=== PATIENT | male | born 1985 | race Caucasian/White ===

== ENCOUNTER 2019-02-15 19:40 | Emergency (ER) | payer SELFPAY ==
[~2019-02-15] VITALS: Ht 170.2 cm; Wt 122.9 kg
[2019-02-15 19:57] VITALS: BP 137/108
--- NOTE | 2019-02-15 20:05 | NUR ---
PT AMBULATED BACK TO THE LOBBY, ABDIASS
--- NOTE | 2019-02-15 22:15 | NUR ---
RE-EVALUATED PT VITALS SIGNS. PT B/P IS ELEVATED AND HR IS ELEVATED 125. PT STATES THAT IS HIS BASELINE AND HIS B IS HIGH DUE TO NOT BEING ABLE TO TAKE HIS MEDS FOR 2 DAYS. PT STATES HE ALSO SWEATS A LOT AND IT IT IS DUE TO HIS WEIGHT GAIN.
--- NOTE | 2019-02-15 22:17 | NUR ---
PT WAS SENT BACK TO LOBBY, VITALS NOTED AND STABLE.
--- NOTE | 2019-02-15 23:35 | NUR ---
PT AMBULATED TO ED BED 09.
--- NOTE | 2019-02-15 23:44 | NUR ---
FIRST CONTACT WITH PATIENT PATIENT HERE FOR MEDICATION REFILL, PT STATES HE LIVED OUT OF STATE IN [place] AND WAITING FOR INSURANCE TO TRANSFER OVER. CANT SEE PCP TILL NEXT WEEK PER IEHP, NEEDS REFILL CARVEDIL, XARELTO, BUMETANIDE. PATIENT GCS 15, AAOX4, NO OTHER COMPLAINTS. NO ACUTE DISTRESS NOTED. WILL CONTINUE TO MONITOR
--- NOTE | 2019-02-16 00:11 | NUR ---
DR NICE AT BEDSIDE
--- NOTE | 2019-02-16 00:21 | NUR ---
Patient discharged with v/s stable. Written and verbal after care instructions given and explained by Dr Boyle. Patient alert, oriented and verbalized understanding of instructions. Ambulatory with steady gait. All questions addressed prior to discharge. ID band removed by Dr Boyle. Patient advised to follow up with PMD. Rx of XARELTO, COREG, AND BUMENTANIDE given. Patient educated on indication of medication including possible reaction and side effects. Opportunity to ask questions provided and answered by Dr Boyle.
[2019-02-16 00:22] VITALS: BP 141/94
== END 2019-02-16 00:21 | disposition home or self-care (01) ==
LOC: MED 19:40
DX: I11.0 Hypertensive heart disease with heart failure (principal); I50.9 Heart failure, unspecified; I82.409 Acute embolism and thrombosis of unspecified deep veins of unspecified lower extremity; Z76.0 Encounter for issue of repeat prescription
CPT/HCPCS: 99283

== ENCOUNTER 2019-03-23 12:07 | Emergency (ER) | payer SELFPAY ==
[~2019-03-23] VITALS: Ht 167.6 cm; Wt 103.0 kg
[2019-03-23 12:14] VITALS: BP 157/117
--- NOTE | 2019-03-23 12:20 | NUR ---
PT CAME IN FOR MEDICATION REFIL. PT A&OX4, STATES HE HAS SOB EXACERBATED WITH EXERTION. DENIES CP/PALPITATIONS. BLE RED AND 2+ PITTING EDEMA. LUNG SOUNDS CLEAR, O2 SAT 96% RA, BREATHING UNLABORED
[2019-03-23] MEDS ORDERED: RIVA20TA PO (12:25)
[2019-03-23] MEDS ORDERED: CARV6.25 PO (12:25)
[2019-03-23] MEDS ORDERED: BUME1TAB92 PO (12:26)
--- NOTE | 2019-03-23 12:28 | NUR ---
PT AMB TO ER BED 7
[2019-03-23] MEDS ORDERED: RIVAROXABAN 10 MG TAB PO STA (12:56)
[2019-03-23 12:57] LABS: BASOPHILS # (AUTO) 0.1 K/uL (0.00-0.22); BASOPHILS % (AUTO) 1.1 % (0.0-2.0); EOSINOPHILS # (AUTO) 0.1 K/uL (0-0.4); EOSINOPHILS % (AUTO) 0.9 % (0.0-4.0); HEMOGLOBIN 12.2 g/dL (12.0-18.0); LYMPHOCYTES # (AUTO) 2.3 K/uL (2.0-11.5); LYMPHOCYTES % (AUTO) 23.6 % (20.5-51.1); MEAN CORPUSCULAR HEMOGLOBIN 24 pg (27-31); MEAN CORPUSCULAR HGB CONC 31 g/dL (33-37); MEAN CORPUSCULAR VOLUME 77.2 fL (80-94); MONOCYTES # (AUTO) 0.8 K/uL (0.8-1.0); MONOCYTES % (AUTO) 7.9 % (1.7-9.3); NEUTROPHILS # (AUTO) 6.5 K/uL (1.8-7.7); NEUTROPHILS % (AUTO) 66.5 % (42.2-75.2); PLATELET COUNT (AUTO) 423 K/uL (140-450); RED BLOOD CELL COUNT(AUTO) 5.18 MIL/uL (4.20-6.10); RED CELL DISTRIBUTION WIDTH 20.1 % (11.6-13.7); WHITE BLOOD COUNT (AUTO) 9.7 K/uL (4.8-10.8)
[2019-03-23 13:09] LABS: ANION GAP 11.3 (8-16); CARBON DIOXIDE 26.7 mmol/L (21-32); CREATININE 1.1 mg/dL (0.7-1.3)
[2019-03-23 13:15] LABS: ALBUMIN 3.2 g/dL (3.4-5.0); TOTAL BILIRUBIN 4.3 mg/dL (0.0-1.0)
--- NOTE | 2019-03-23 13:21 | NUR ---
called pharmacy to bring jillian
--- NOTE | 2019-03-23 13:28 | NUR ---
pt is refusing all care at this time, states he came to the ER only to refil his prescription medications. Dr. Massey aware and will go to see the pt.
--- NOTE | 2019-03-23 13:34 | NUR ---
PT WOULD LIKE TO LEAVE AMA, DR. HERNDON WILL WRITE PAPERWORK.
[2019-03-23 13:41] VITALS: BP 154/111
--- NOTE | 2019-03-23 13:42 | NUR ---
Patient does not wish to proceed with medical care recommended by DR. HERNDON. Patient given information related to possible complications, up to and including , which could occur as a result of leaving hospital at this time. Patient verbalizes understanding of risks involved leaving against medical advice. Patient has signed AMA form. PT STATES HE ALREADY KNOWS WHAT IS WRONG WITH HIM AND HE DID NOT COME IN FOR TREATMENT, ONLY TO GET A PRESCRIPTION REFIL. RX OF CARVEDILOL, BUMETANIDE, XARELTO given TO PT.
== END 2019-03-23 13:42 | disposition left against medical advice (07) ==
LOC: MED 12:07
DX: R06.02 Shortness of breath (principal); M79.89 Other specified soft tissue disorders; E66.9 Obesity, unspecified; I11.0 Hypertensive heart disease with heart failure; I50.9 Heart failure, unspecified; Z76.0 Encounter for issue of repeat prescription; Z68.36 Body mass index [BMI] 36.0-36.9, adult; Z79.899 Other long term (current) drug therapy
CPT/HCPCS: 36415; 71045; 80053; 83880; 84484; 85025; 93005; 99284; Q0092

== ENCOUNTER 2020-11-12 07:49 | Inpatient (IN) | payer OTHER, SELFPAY ==
[~2020-11-12] VITALS: Ht 167.6 cm; Wt 131.5 kg
[2020-11-12 07:49] VITALS: BP 142/118
[~2020-11-12 07:49] MED LIST: BUME1TAB92 PO; CARV6.25 PO; RIVA20TA PO
--- NOTE | 2020-11-12 07:54 | NUR ---
BIBA TAKEN TO BED 10
--- NOTE | 2020-11-12 08:00 | NUR ---
35 Y/O M BIBA C/O SHORTNESS OF BREATH X 1 WEEK. PER EMS, PT HAS HAD DIFFICULTY BREATHING FOR ONE WEEK AND A NONPRODUCTIVE COUGH X 2 MONTHS. PT PRESENTED WITH 98% ON 15L NRB VIA EMS GURNEY. PER EMS, PT IS 78% ON ROOM AIR. PT PRESENT WITH BILATERAL LEG WOUND WITH SWELLING, DARK RED BLISTERS X FEW DAYS, LEFT UPPER ARM DISCOLORATION. PT DENIES FEVER, CHILLS. PT STATES HE VOMITTED X 1. PT ALSO STATES HE HAS BEEN OUT OF MEDICATION FOR ONE MONTH. BED LOCKED IN LOWEST POSITION, SIDE RAILS X 2 AND CALL LIGHT WITHIN REACH. PMH: CHF, HTN NKA MEDS: BUMETANIDE, CARVEDILOL, RIVAROXABAN
--- NOTE | 2020-11-12 08:05 | NUR ---
LABS COLLECTED AND SENT TO LAB
[2020-11-12] MEDS ORDERED: VANCOMYCIN 1,000 MG in DEXTROSE 5% 250 ML IV ONE (08:10)
[2020-11-12] MEDS ORDERED: PIPERACILLIN/TAZOBACTAM 3.375 GM in DEXTROSE 5% 50 ML IV ONE (08:10)
--- NOTE | 2020-11-12 08:16 | NUR ---
RT at bedside to place pt on bipap.
--- NOTE | 2020-11-12 08:26 | NUR ---
EKG AT BEDSIDE
--- NOTE | 2020-11-12 08:26 | NUR ---
BOY SWAB COLLECTED AND SENT TO LAB
--- NOTE | 2020-11-12 08:26 | NUR ---
XRAY AT BEDSIDE
[2020-11-12] MEDS ORDERED: PIPERACILLIN/TAZOBACTAM 3.375 GM VIAL IV ONE (08:28)
--- NOTE | 2020-11-12 08:30 | NUR ---
PT WAS PLACED ON BIPAP PER AND JUST AFTER FIVE MINUTES PLUGGED THE MASK OFF AND COULD NOT WEAR IT I IMFORMED DR. GOMES AND PLACED PT BACK ON NRB AT 15L 100% AND ABG RESULTS GIVEN TO DR. GOMES
--- NOTE | 2020-11-12 08:31 | NUR ---
PT TAKING OFF BIPAP MACHINE, STATING IT IS MAKING HIM ANXIOUS. 15LNRB PLACED BACK ON PT. ERMD MADE AWARE
[2020-11-12 08:35] LABS: BASOPHILS % (AUTO) 0.3 % (0.0-2.0); EOSINOPHILS % (AUTO) 0.1 % (0.0-4.0); HEMOGLOBIN 12.7 g/dL (12.0-18.0); LYMPHOCYTES # (AUTO) 1.5 K/uL (2.0-11.5); LYMPHOCYTES % (AUTO) 14.9 % (20.5-51.1); MEAN CORPUSCULAR HEMOGLOBIN 21 pg (27-31); MEAN CORPUSCULAR HGB CONC 30 g/dL (33-37); MEAN CORPUSCULAR VOLUME 70.4 fL (80-94); MONOCYTES # (AUTO) 0.6 K/uL (0.8-1.0); MONOCYTES % (AUTO) 6.3 % (1.7-9.3); NEUTROPHILS # (AUTO) 7.8 K/uL (1.8-7.7); NEUTROPHILS % (AUTO) 78.4 % (42.2-75.2); PLATELET COUNT (AUTO) 368 K/uL (140-450); RED BLOOD CELL COUNT(AUTO) 5.96 MIL/uL (4.20-6.10); RED CELL DISTRIBUTION WIDTH 20.1 % (11.6-13.7); WHITE BLOOD COUNT (AUTO) 9.9 K/uL (4.8-10.8)
--- NOTE | 2020-11-12 08:45 | NUR ---
XRAY AT BEDSIDE
[2020-11-12 08:56] LABS: ANION GAP 19.1 (8-16); CARBON DIOXIDE 22.2 mmol/L (21-32); CREATININE 1.8 mg/dL (0.6-1.3); POTASSIUM 4.3 mmol/L (3.5-5.1)
[2020-11-12] MEDS ORDERED: NITROGLYCERIN 50 MG/D5W PREMIX 250 ML IV ONE ×2 (09:00→10:06)
[2020-11-12 09:05] LABS: ALBUMIN 2.9 g/dL (3.4-5.0); BILIRUBIN,DIRECT 6.2 mg/dL (0.0-0.3); TOTAL BILIRUBIN 8.9 mg/dL (0.0-1.0)
--- NOTE | 2020-11-12 09:10 | NUR ---
ULTRASOUND AT BEDSIDE
--- NOTE | 2020-11-12 09:10 | NUR ---
Roselyn walker in [facility] - 11/12/[address] AT BEDSIDE
[2020-11-12] MEDS ORDERED: VANCOMYCIN 1,000 MG VIAL ONE (09:16)
--- NOTE | 2020-11-12 09:25 | NUR ---
PT PLACED ON 2L NC PER REQUEST OF ERMD. PT SATING AT 99% ON 2L NC.
[2020-11-12 09:33] LABS: PROTHROMBIN TIME 60.9 secs (10.8-13.4)
--- NOTE | 2020-11-12 09:51 | NUR ---
CALLED CT VIA PHONE AND SPOKE WITH VICTOR MANUEL. MADE AWARE THAT PT SIGNED CONSENT FORM AND IS READY.
[2020-11-12] MEDS ORDERED: ASPIRIN 81 MG TAB.CHEW PO ONE (10:05)
--- NOTE | 2020-11-12 10:08 | NUR ---
CT AT BEDSIDE. CT DISCONNECTED PT FROM CAMPAIGN CONSULTANT, BLOOD PRESSURE CUFF, PULSE OX. PT ON NASAL CANNULA @ 2L CONNECTED ONTO [facility] PORTABLE O2 TANK. CT ASSISTED VIA GURNEY WITHOUT INCIDENT.
--- NOTE | 2020-11-12 10:15 | NUR ---
URINE COLLECTED FROM URINAL: 350CC OUTPUT CLEAR, YELLOW
--- NOTE | 2020-11-12 10:33 | NUR ---
PT RETURNED FROM CT WITHOUT INCIDENT AND ASSISTED BY EMT ONTO METAL LEAF LAYER, BP CUFF, PULSE OX. BED LOCKED IN LOWEST POSITION, SIDE RAILS X 2 AND CALL LIGHT WITHIN REACH.
--- NOTE | 2020-11-12 10:47 | NUR ---
MORENO STATED TO HOLD NITROGLYCENRIN DUE TO BP TRENDS OF 114/77, 127/87, 89/60, 113/44
[2020-11-12] MEDS ORDERED: LOSA25TA43 PO ×2 (10:50→11:13)
--- NOTE | 2020-11-12 10:55 | NUR ---
WOUND PHOTOS TAKEN AND PLACED IN CHART
[2020-11-12] MEDS ORDERED: BUME1TAB92 PO (11:12)
[2020-11-12 11:27] LABS: C-REACTIVE PROTEIN QUANT 15.1 mg/dL (0.0-0.9)
--- NOTE | 2020-11-12 12:05 | NUR ---
NOVEL SWAB COLLECTED AND WALKED TO LAB, LEFT WITH MANAGER LOSS PREVENTION
[2020-11-12] MEDS: FUROSEMIDE 40 MG/4 ML VIAL IVP SCH ×2 (12:07→12:11)
[2020-11-12] MEDS ORDERED: MAGNESIUM OXIDE 400 MG TAB PO PRN (12:15)
[2020-11-12] MEDS ORDERED: POTASSIUM CHLORIDE 10 MEQ TABER PO PRN (12:15)
[2020-11-12] MEDS ORDERED: VANCOMYCIN PER PHARMACY MC PRN (12:15)
[2020-11-12] MEDS ORDERED: MAG SULF 2000 MG/WATER PREMIX 50 ML IV PRN (12:15)
[2020-11-12] MEDS ORDERED: ONDANSETRON 4 MG/2 ML VIAL IVP PRN (12:15)
[2020-11-12] MEDS ORDERED: KCL 20 MEQ/WATER INJ PREMIX 200 ML IV PRN (12:15)
--- NOTE | 2020-11-12 12:17 | NUR ---
URINE COLLECTED FROM URINAL: OUTPUT 175CC CLEAR, YELLOW
--- NOTE | 2020-11-12 13:00 | NUR ---
VOIDED URINAL OUTPUT 125CC CLEAR, YELLOW
--- NOTE | 2020-11-12 13:00 | NUR ---
DR. NICK AT BEDSIDE EVALUATING PT
--- NOTE | 2020-11-12 13:15 | NUR ---
DR. RODRIGUES SPEAKING WITH PT AT BEDSIDE.
--- NOTE | 2020-11-12 13:19 | NUR ---
DR. RODRIGUES AT BEDSIDE
--- NOTE | 2020-11-12 15:10 | NUR ---
PT SITTING IN BED, HIGH FOWLERS POSITION. BED LOCKED AND IN LOWEST POSITION. SIDE RAILS X2. VEGETABLE HANDLER/PULSE OX IN PLACE. CALL LIGHT IN REACH. ALL PT NEEDS MET AT THIS TIME.
[2020-11-12 16:01] LABS: CKMB RELATIVE INDEX 2.5 (0.0-2.5)
[2020-11-12] MEDS: VANCOMYCIN 1,750 MG in DEXTROSE 5% 500 ML IV SCH (16:34)
--- NOTE | 2020-11-12 16:45 | NUR ---
PT RESTING IN HIGH FOWLERS. EQUAL CHEST RISE AND FALL. BED LOCKED IN LOWEST POSITION, SIDE RAILS X2. CALL LIGHT WITHIN REACH
--- NOTE | 2020-11-12 17:21 | NUR ---
LAB AT BEDSIDE
--- NOTE | 2020-11-12 17:59 | NUR ---
PT REPOSITIONED FOR COMFORT. DINNER TRAY PROVIDED. BED LOCKED AND IN LOWEST POSITION. SIDE RAILS X1. TUMBLER PLATER/PULSE OX IN PLACE. CALL LIGHT IN REACH. ALL PT NEEDS MET AT THIS TIME.
--- NOTE | 2020-11-12 18:24 | NUR ---
PAGED OUTBOARD MOTORBOAT OPERATOR DOCTOR TO REPORT CRITICAL LAB TROPONIN VALUES
--- NOTE | 2020-11-12 18:26 | NUR ---
DR. PULIDO NOTFIED OF ELEVATED TROPONIN. NO NEW ORDERS AT THIS TIME.
--- NOTE | 2020-11-12 18:50 | NUR ---
PT STATE HE BIT HIS INNER LOWER LIP WHILE EATING HIS MEAL. BLEEDING IS CONTROLLED AFTER GAUZE PROVIDED TO PT. ALL PT NEEDS MET AT THIS TIME. DRUM SPRAYER IN PLACE, BED LOCKED IN LOWEST POSITION, SIDE RAILS X1 AND CALL LIGHT IN REACH
--- NOTE | 2020-11-12 19:18 | NUR ---
REPORT AND TRANSFER OF CARE GIVEN TO RACHEL BUSTILLO
--- NOTE | 2020-11-12 19:22 | NUR ---
RECIVED REPORT FROM GABRIEL RAMOS, CONTINUATION OF CARE.
--- NOTE | 2020-11-12 22:13 | NUR ---
Patient appears to be resting comfortably in bed. Vital Signs within normal limits. Respirations even and unlabored.
[2020-11-13] VITALS (7 sets, daily range): BP systolic 89–135; BP diastolic 52–83
--- NOTE | 2020-11-13 00:10 | NUR ---
Patient will be admitted to care of . Admited to TELE. Will go to room 117A. Belongings list completed. Report to TITA RAMOS.
[2020-11-13] MEDS ORDERED: VANCOMYCIN 1,000 MG VIAL ONE (00:30)
[2020-11-13] MEDS: VANCOMYCIN 1,750 MG in DEXTROSE 5% 500 ML IV SCH ×3 (01:35→17:00)
--- NOTE | 2020-11-13 01:40 | NUR ---
RECEIVED PT FROM ER.PLACED ON BED/ORIENTED TO ROOM.CALL SYSTEM EXPLAINED AND IN REACH.PT IS AWAKE,A&O.RESP.UNLABORED W/2L/NC, W O2 SAT OF 100%.HAS 2 SL.ONE ON LT HAND DOESN'T WORK.ONE IN LT AC PATENT.VANCOMYCIN IV STARTED AND INFUSING WELL. HAS BLE CELLULITIS W/OPEN WOUND.WILL CONT.MONITORING.TELE APPLIED.
[2020-11-13] MEDS ORDERED: PNEUMOCOCCAL VACCINE 23 MCG/0.5 ML VIAL IMVAC ONE (04:20)
[2020-11-13] MEDS ORDERED: FLU VACCINE QS2020-21 0.5 ML SYR IMVAC PRN (04:20)
[2020-11-13 06:01] LABS: BASOPHILS % (AUTO) 0.1 % (0.0-2.0); EOSINOPHILS % (AUTO) 0.1 % (0.0-4.0); HEMATOCRIT 40.6 % (36-52); LYMPHOCYTES # (AUTO) 1.5 K/uL (2.0-11.5); MEAN CORPUSCULAR HEMOGLOBIN 21 pg (27-31); MEAN CORPUSCULAR HGB CONC 30 g/dL (33-37); MEAN CORPUSCULAR VOLUME 70.4 fL (80-94); MONOCYTES # (AUTO) 0.7 K/uL (0.8-1.0); MONOCYTES % (AUTO) 5.8 % (1.7-9.3); PLATELET COUNT (AUTO) 349 K/uL (140-450); RED BLOOD CELL COUNT(AUTO) 5.77 MIL/uL (4.20-6.10); RED CELL DISTRIBUTION WIDTH 20.3 % (11.6-13.7); WHITE BLOOD COUNT (AUTO) 12.2 K/uL (4.8-10.8)
[2020-11-13] MEDS: MORPHINE SULFATE 4 MG/ML SYR IVP PRN ×2 (06:16→17:53)
--- NOTE | 2020-11-13 07:04 | NUR ---
CALLED AND I GAVE HIM REPORT OF PATIENT'S CONDITION.HAD C/O GEN.PAIN.MORPHIN IVP GIVEN .NO C/O PAIN NOW.WILL ENDORSE TO AM SHIFT.
--- NOTE | 2020-11-13 07:45 | NUR ---
REC'D BEDSIDE ENDORSEMENT FROM NIGHTSHIFT NURSE. WILL CONTINUE W/ POC.
[2020-11-13 08:41] LABS: ALBUMIN 2.6 g/dL (3.4-5.0); ANION GAP 16.9 (8-16); CARBON DIOXIDE 22.8 mmol/L (21-32); CREATININE 1.8 mg/dL (0.6-1.3); POTASSIUM 3.7 mmol/L (3.5-5.1); TOTAL BILIRUBIN 8.8 mg/dL (0.0-1.0)
[2020-11-13] MEDS ORDERED: BUMETANIDE 1 MG TAB PO SCH (09:00)
[2020-11-13] MEDS ORDERED: FUROSEMIDE 40 MG/4 ML VIAL IVP SCH (09:00)
--- NOTE | 2020-11-13 09:48 | NUR ---
REC'D CRITICAL LAB VALUE FROM [facility] TROPONIN 0.151; SODIUM 121; CREATININE 1.8, BUN 52. CONTACTED MD FOR FURTHER INSTRUCTIONS.
--- NOTE | 2020-11-13 09:50 | NUR ---
REC'D COMMUNICATION FROM WILL F/U W/ NEPHRO AND CARDIO CONSULT FOR CRITICAL LAB VALUES
[2020-11-13] MEDS: LOSARTAN 25 MG TAB PO SCH (09:55)
[2020-11-13] MEDS: DOCUSATE SODIUM 100 MG GELCAP PO SCH (09:56)
[2020-11-13] MEDS: carvediloL 6.25 MG TAB PO SCH ×2 (09:56→21:00)
--- NOTE | 2020-11-13 10:11 | NUR ---
ADMINISTERED PRESCRIBED MEDS PER MD ORDER. PATIENT TOLERATED WELL. MEDICATION EDUCATION PROVIDED. PATIENT VERBALIZED UNDERSTANDING. SAFETY MEASURES IN PLACE. WILL CONT TO MONITOR.
--- NOTE | 2020-11-13 10:16 | NUR ---
PATIENT HAS BEEN SCREENED AND CATEGORIZED HIGH NUTRITION RISK. PATIENT WILL BE SEEN WITHIN 1-2 DAYS OF ADMISSION. 11/13/[address]
--- NOTE | 2020-11-13 10:44 | NUR ---
SOCIAL WORK NOTE: CRISTAL WAS UNABLE TO MEET PATIENT AT BEDSIDE TO COMPLETE ASSESSMENT. CRISTAL LEFT VM WITH PATIENT'S MOTHER CLAY DALE [phone]. CRISTAL WILL FOLLOW UP. Addendum: 11/14/20 at 1211 by Salvador Larson CRISTAL LEFT ADDITIONAL VM TO PATIENT. CRISTAL CONTACTED RN BUT NO OTHER EMERGENCY CONTACTS WERE AVAILABLE. CRISTAL WILL FOLLOW UP. Addendum: 11/15/20 at 1140 by Salvador Larson Patient's Orientation Person Situation Place Time Information Provided By PATIENT Comments CRITSAL WAS UNABLE TO MEET PATIENT AT BEDSIDE. CRISTAL COMPLETED ASSESSMENT WITH PATIENT TELEPHONICALLY. Parboiler, Realtionship and Phone Number CLAY DALE MOTHER N/A - PATIENT STATED HE WOULD PROVIDE NUMBER TO NURSE Healthcare Power of Litigation Assistant No Does Patient Have a POLST No Identifying Problems No Social Work Triggers Is A Social Work Consult Needed No Mandate Report Filed No Explanation Of Identifying Problems PATIENT IS A 35-YEAR-OLD MALE ADMITTED FOR ACUTE CHF AND CELLULITIS. PATIENT HAS PMHX OF HTN AND MORBID OBESITY. Admitted From Home Pre-Admission Level Of Functioning Status Independent/Ambulatory Prior Resources/Services Used In Last 12 Months No Prior Resources Used Prior DME No Prior DME Used Dialysis Comments N/A Living Situation Lives With Family House Patient Had Caregiver No Home Support No Caregiver Issues Financial Issues No Known Financial Issue Referral To The Financial Counselor Needed No Factors/Needs No D/C Needs Identified Pt/Rep Participated In Discharge Plan Yes Patient/Family Agress With Discharge Plan Yes Discharge Plan Comments TENTATIVE DISCHARGE PLAN IS FOR PATIENT TO RETURN HOME. DC Plan Status Initiated
[2020-11-13] MEDS: PIPERACILLIN/TAZOBACTAM 3.375 GM in DEXTROSE 5% 50 ML IV SCH ×3 (13:03→18:50)
[2020-11-13] MEDS ORDERED: NACL 3% 200 ML IV SCH (13:30)
[2020-11-13] MEDS: FUROSEMIDE 40 MG/4 ML VIAL IVP SCH ×2 (17:30→21:00)
--- NOTE | 2020-11-13 18:03 | NUR ---
ADMINISTERED PRESCRIBED MEDS PER MD ORDER. PATIENT TOLERATED WELL. MEDICATION EDUCATION PROVIDED. EDUCATION REINFORCEMENT NEEDED. SAFETY MEASURES IN PLACE. WILL CONT TO MONITOR.
--- NOTE | 2020-11-13 18:27 | NUR ---
REC'D CALL FROM PHARMACY AND ADVSD VANCOMYCIN NOT DELIVERED PENDING TROUGH DRAW. MEDICATION HELD FOR TROUGH LEVEL.
[2020-11-13] MEDS: NACL 0.9% IRR 250 ML BOTTLE IR SCH (18:50)
--- NOTE | 2020-11-13 19:00 | NUR ---
REC'D CALL FROM LAB, [facility] 59.4
--- NOTE | 2020-11-13 19:06 | NUR ---
ADMINISTERED PRESCRIBED MEDS PER MD ORDER. PATIENT RESTING, TOLERATED WELL. SAFETY MEASURES IN PLACE. WILL CONT TO MONITOR.
--- NOTE | 2020-11-13 19:30 | NUR ---
ENDORSED PATIENT TO NIGHTSHIFT NURSE FOR CONTINUITY OF CARE
--- NOTE | 2020-11-13 20:43 | NUR ---
NURSE SABRINA - SHE GAVE 6PM DUE CAILIN PHAM
[2020-11-14] VITALS: BP 81/53
--- NOTE | 2020-11-14 | NUR ---
MADE ROUNDS , NO S/SX OF ACUTE DISTRESS NOTED O2 SAT WNL .
[2020-11-14] MEDS: PIPERACILLIN/TAZOBACTAM 3.375 GM in DEXTROSE 5% 50 ML IV SCH ×4 (00:10→18:11)
[2020-11-14] MEDS: NACL 0.9% IRR 250 ML BOTTLE IR SCH ×2 (01:00→13:00)
[2020-11-14 04:00] VITALS: BP 95/43
--- NOTE | 2020-11-14 04:00 | NUR ---
O2 SAT WNL . NO S/SX OF ACUTE DISTRESS - ON TELE MONITOR
[2020-11-14] MEDS: FUROSEMIDE 40 MG/4 ML VIAL IVP SCH ×3 (05:00→23:22)
--- NOTE | 2020-11-14 07:35 | NUR ---
REC'D BEDSIDE ENDORSEMENT FROM NIGHTSHIFT NURSE. WILL CONTINUE W/ POC.
--- NOTE | 2020-11-14 07:35 | NUR ---
ENDORSEDS - PT - STABLE .
[2020-11-14 08:00] VITALS: BP 99/60
--- NOTE | 2020-11-14 08:14 | NUR ---
11/14/20 RD INITIAL ASSESSMENT COMPLETED PLEASE REFER TO NUTRITION ASSESSMENT UNDER CARE ACTIVITY FOR ESTIMATED NUTRITIONAL NEEDS. RD RECOMMENDATIONS: 1. RECOMMEND CONTINUE CARDIAC DIET. 2. ENCOURAGE INCREASED PO INTAKE. 3. F/U 3-5 DAYS; MODERATE RISK SAKSHI CHAU MBA, RD
[2020-11-14] MEDS: LOSARTAN 25 MG TAB PO SCH (10:11)
[2020-11-14] MEDS: carvediloL 6.25 MG TAB PO SCH ×2 (10:11→23:23)
[2020-11-14] MEDS: DOCUSATE SODIUM 100 MG GELCAP PO SCH (10:14)
[2020-11-14] MEDS: MORPHINE SULFATE 4 MG/ML SYR IVP PRN (10:19)
--- NOTE | 2020-11-14 10:28 | NUR ---
ADMINISTERED PRESCRIBED MEDS PER MD ORDER. PATIENT TOLERATED WELL. SAFETY MEASURES IN PLACE. WILL CONT TO MONITOR.
--- NOTE | 2020-11-14 11:09 | NUR ---
REC'D CALL FROM MD NEEDING PATIENT LAB RESULTS STAT. ADVERTISING STRATEGIST AT PATIENT ROOM, ADVSD OF STAT REQUEST.
[2020-11-14 12:02] LABS: BASOPHILS % (AUTO) 0.2 % (0.0-2.0); EOSINOPHILS # (AUTO) 0.1 K/uL (0-0.4); EOSINOPHILS % (AUTO) 0.5 % (0.0-4.0); HEMATOCRIT 44.8 % (36-52); HEMOGLOBIN 13.1 g/dL (12.0-18.0); LYMPHOCYTES # (AUTO) 1.2 K/uL (2.0-11.5); LYMPHOCYTES % (AUTO) 8.2 % (20.5-51.1); MEAN CORPUSCULAR HEMOGLOBIN 21 pg (27-31); MEAN CORPUSCULAR HGB CONC 29 g/dL (33-37); MEAN CORPUSCULAR VOLUME 70.8 fL (80-94); MONOCYTES # (AUTO) 0.6 K/uL (0.8-1.0); NEUTROPHILS # (AUTO) 12.6 K/uL (1.8-7.7); NEUTROPHILS % (AUTO) 87.1 % (42.2-75.2); PLATELET COUNT (AUTO) 345 K/uL (140-450); RED BLOOD CELL COUNT(AUTO) 6.34 MIL/uL (4.20-6.10); RED CELL DISTRIBUTION WIDTH 20.4 % (11.6-13.7); WHITE BLOOD COUNT (AUTO) 14.5 K/uL (4.8-10.8)
[2020-11-14 12:43] LABS: PROTHROMBIN TIME 23.3 secs (10.8-13.4)
[2020-11-14 13:00] LABS: ALBUMIN 2.3 g/dL (3.4-5.0); ANION GAP 9.6 (8-16); CARBON DIOXIDE 31.3 mmol/L (21-32); CREATININE 1.8 mg/dL (0.6-1.3); TOTAL BILIRUBIN 8.6 mg/dL (0.0-1.0)
--- NOTE | 2020-11-14 13:00 | NUR ---
ADMINISTERED PRESCRIBED MEDS PER MD ORDER. PATIENT TOLERATED WELL. SAFETY MEASURES IN PLACE. WILL CONT TO MONITOR.
[2020-11-14 13:03] LABS: POTASSIUM 2.9 mmol/L (3.5-5.1)
[2020-11-14] MEDS ORDERED: POTASSIUM CHLORIDE 10 MEQ TABER PO SCH (13:15)
--- NOTE | 2020-11-14 13:49 | NUR ---
ADMINISTERED ONE TIME PRN KDUR FOR POTASSIUM LEVEL 2.9 PER MD ORDER. MEDICATION EDUCATION PROVIDED, PATIENT VERBALIZED UNDERSTANDING. SAFETY MEASURES IN PLACE. PATIENT EATING LUNCH. WILL CONT TO MONITOR.
--- NOTE | 2020-11-14 14:56 | NUR ---
HOURLY ROUNDING PERFORMED. PATIENT IS RESTING IN BED. VISIBLE RISE AND FALL OF CHEST. PATIENT DENIES PAIN. SAFETY MEASURES IN PLACE. WILL CONT TO MONITOR.
[2020-11-14 16:00] VITALS: BP 88/51
--- NOTE | 2020-11-14 17:18 | NUR ---
CLEANSED PATIENT LEGS PRESCRIBED BY MD. PATIENT TOLERATED WELL. DENIED PAIN BEFORE, DURING AND AFTER TREATMENT. PATIENT STATED FEELING MORE RELAXED NOW THAN EARLIER TODAY. EDUCATION PROVIDED REGARDING SKIN CARE, PATIENT VERBALIZED UNDERSTANDING. SAFETY MEASURES IN PLACE. WILL CONT TO MONITOR.
--- NOTE | 2020-11-14 19:15 | NUR ---
ENDORSED PATIENT TO NIGHTSHIFT NURSE FOR CONTINUITY OF CARE
--- NOTE | 2020-11-14 19:16 | NUR ---
RECEIVED ENDORSEMENT FROM AM SHIFT RN, ON O2 VIA NC AT 5L/MIN, NO SOB, O2 SAT WNL, NO DISTRESS, SAFETY MEASURES IN PLACE, CELLULITIS TO MARIANNE LOWER EXTREMITIES, RESIDENTIAL CHILD CARE COUNSELOR, ISO PRECAUTION IN PLACE, PLAN OF CARE DISCUSSED, CALL LIGHT WITHIN REACH.
[2020-11-14 20:00] VITALS: BP 113/75
--- NOTE | 2020-11-14 23:29 | NUR ---
DUE MEDS GIVEN, TOLERATED WELL. CALL LIGHT WITHIN REACH.
[2020-11-15] VITALS: BP 106/52
--- NOTE | 2020-11-15 | NUR ---
PT STABLE, NO DISTRESS, NO SOB, ENDORSED TO RACHEL COYLE FOR CONTINUITY OF CARE.
[2020-11-15] MEDS: PIPERACILLIN/TAZOBACTAM 3.375 GM in DEXTROSE 5% 50 ML IV SCH ×4 (00:24→17:35)
[2020-11-15] MEDS: MORPHINE SULFATE 4 MG/ML SYR IVP PRN ×2 (00:31→17:35)
--- NOTE | 2020-11-15 00:31 | NUR ---
RECEIVED REPORT FROM [facility]. PT IS CRYING STATES PAIN IS 10/10. ADMINISTERED MORPHINE PRN. DX MARIANNE LEG CELLULITIS. LEGS ARE SWOLLEN,RED, PURPLE, OPEN WOUND, WOUND BED IS YELLOW, LEGS ARE OOZING. PT IS AAOX4. RESPIRATIONS ARE EQUAL AND UNLABORED ON 5L NC. IV ON LHA 20G AND LAC 20G SL. PT ON FLUID RESTRICTIONS OF 1200ML/DAY. PT IS BEDBOUND HX DVT,PE CHF HTN AND DRUG ABUSE. PT IS ON ZOSYN Q6H. ON DROPLET ISOLATION FOR PUI. BED LOWEST POSITION, CALL LIGHT IS WITHIN REACH. POC DISCUSSED WITH PT. WILL CONTINUE TO MONITOR.
[2020-11-15] MEDS: NACL 0.9% IRR 250 ML BOTTLE IR SCH ×2 (00:36→13:46)
--- NOTE | 2020-11-15 02:16 | NUR ---
PT IS SITTING UP EATING DINNER AT THIS TIME. PAIN WELL CONTROLLED. ALL SAFETY MEASURES ARE IN PLACE.
[2020-11-15 04:00] VITALS: BP 99/66
--- NOTE | 2020-11-15 04:00 | NUR ---
VITAL SIGNS ARE WITHIN NORMAL LIMITS. GAVE PT APPLE JUICE PER REQUEST. REMINDED PT HE DOES HAVE A FLUID RESTRICTION. PT VERBALIZED UNDERSTANDING. ALL NEEDS MET. CALL LIGHT IS WITHIN REACH.
[2020-11-15] MEDS: FUROSEMIDE 40 MG/4 ML VIAL IVP SCH ×2 (05:06→13:20)
--- NOTE | 2020-11-15 07:31 | NUR ---
GAVE BEDSIDE REPORT TO DAY RN. PT ENDORSED IN STABLE CONDITION.
[2020-11-15 08:00] VITALS: BP 86/49
--- NOTE | 2020-11-15 08:00 | NUR ---
NURSE REPORT Report obtained from night nurse Yunier and this nurse assume care at 0730. Received patient awake. No c/o pain or discomfort. BP 86/49. BP meds held due to low BP.
[2020-11-15 08:44] LABS: BASOPHILS # (AUTO) 0.1 K/uL (0.00-0.22); BASOPHILS % (AUTO) 0.3 % (0.0-2.0); EOSINOPHILS # (AUTO) 0.1 K/uL (0-0.4); EOSINOPHILS % (AUTO) 0.6 % (0.0-4.0); HEMATOCRIT 43.3 % (36-52); HEMOGLOBIN 12.8 g/dL (12.0-18.0); LYMPHOCYTES # (AUTO) 0.9 K/uL (2.0-11.5); LYMPHOCYTES % (AUTO) 5.7 % (20.5-51.1); MEAN CORPUSCULAR HEMOGLOBIN 21 pg (27-31); MEAN CORPUSCULAR HGB CONC 30 g/dL (33-37); MEAN CORPUSCULAR VOLUME 71.2 fL (80-94); MONOCYTES # (AUTO) 0.7 K/uL (0.8-1.0); NEUTROPHILS # (AUTO) 14.7 K/uL (1.8-7.7); NEUTROPHILS % (AUTO) 89.4 % (42.2-75.2); PLATELET COUNT (AUTO) 325 K/uL (140-450); RED BLOOD CELL COUNT(AUTO) 6.08 MIL/uL (4.20-6.10); RED CELL DISTRIBUTION WIDTH 20.2 % (11.6-13.7); WHITE BLOOD COUNT (AUTO) 16.5 K/uL (4.8-10.8)
[2020-11-15] MEDS: LOSARTAN 25 MG TAB PO SCH (09:00)
[2020-11-15] MEDS: carvediloL 6.25 MG TAB PO SCH (09:00)
[2020-11-15 09:24] LABS: PROTHROMBIN TIME 19.3 secs (10.8-13.4)
[2020-11-15] MEDS: DOCUSATE SODIUM 100 MG GELCAP PO SCH (09:39)
[2020-11-15 09:42] LABS: ALBUMIN 2.2 g/dL (3.4-5.0); ANION GAP 10.4 (8-16); CARBON DIOXIDE 30.8 mmol/L (21-32); CREATININE 1.6 mg/dL (0.6-1.3); POTASSIUM 3.2 mmol/L (3.5-5.1)
--- NOTE | 2020-11-15 10:10 | NUR ---
WOUND CARE EVALUATION NOTE: WOUND ASSESSMENT DONE TO THIS 35 Y/O MALE PT. AAX4, POC DISCUSSED WITH WOUND CARE TEACHING DONE, PT. VERBALIZES UNDERSTANDING. POC DISCUSSED WITH PRIMARY RN. CALLED TO DR. KHALIL WITH ORDER FOR SURGEON TO CONSULT AND HE WILL CALL DR. GONZALES. -LEFT LOWER LEG FROM THIGH TO BELOW KNEE ERYTHEMA, MULTIPLE OPEN BLISTERS, WOUND BEDS ARE RED AND CLEAN, KIERAN WOUND SKIN PURPLE FLUIDS INTACT BLISTERS TO LEFT LATERAL AND MEDIAL THIGH, ABLE TO BEND KNEE NO LIMITATION -LEFT LOWER ANTERIOR LEG 3P1O8PP 100% SOFT BLACK SLOUGH, SMALL AMOUNT PURULENT DRAINAGE, ODOR WITH KIERAN-WOUND SKIN ERYTHEMA AND PAIN 2/10 TO TOUCH. -LEFT 5TH DIGIT TOE 0.5X0.5CM BLACK SCAB -RIGHT DORSAL FOOT +2 EDEMA, SKIN INTACT -RIGHT AND LEFT HEELS DRY BLACK DRY FISSURES AND THICKEN CALLUS RECOMMENDATIONS -SURGEON CONSULT FOR LLE WOUND DEBRIDEMENT -CLEANSE LLE (THIGH TO KNEE AREA)CELLULITIS WITH NS AND GAUZE, PAT DRY, COVER WITH XEROFORM DRESSING, ABD PAD AND WRAP WITH MARNI Q M-W-F AND PRN WITH SOILING/DISPLACEMENT. -CLEANSE LLE (COTA AREA) WOUND WITH NS AND GAUZE, PAT DRY, APPLY ADAPTIC DRESSING, COVER WITH ISLAND DRESSING QD AND PRN WITH SOILING -PAINT LEFT 5TH TOE, BILATERAL HEELS FISSURES WITH BETADINE SOLUTION BID AND VINEET
[2020-11-15 12:00] VITALS: BP 64/45
[2020-11-15] MEDS ORDERED: GAUZE TP SCH (13:00)
[2020-11-15] MEDS ORDERED: POTASSIUM CHLORIDE 10 MEQ TABER PO ONE (13:25)
[2020-11-15] MEDS ORDERED: MAG SULF 2000 MG/WATER PREMIX 50 ML IV ONE (13:25)
--- NOTE | 2020-11-15 13:45 | NUR ---
RECEIVED PT ENDORSEMENT AT THIS TIME. PT IS RESTING IN BED, WANTING CRUSHED ICE REPLACEMENT. WILL CONTINUE WITH POC.
--- NOTE | 2020-11-15 13:45 | NUR ---
NURSE REPORT AND ENDORSEMENT MD was notified of low BP, and he came in to see patient. NS at 10 ml/hr. Received IV Zosyn.
--- NOTE | 2020-11-15 15:22 | NUR ---
PT GIVEN MG RIDER AND K DUR DUE TO LOW MG AND LOW K PT TOLERATING WELL ALL NEEDS MET. MD NOTIFIED OF PTS B/P NO NEW ORDERS GIVEN. WILL CONTINUE TO CLOSELY MONITOR. ALL NEEDS MET AT THIS TIME.
--- NOTE | 2020-11-15 15:57 | NUR ---
HARDY MANJARREZ: RECEIVED ORDER FOR HOME O2 FAXED ORDER TO [facility]. Addendum: 11/15/20 at 1651 by Corina Beard CM HARDY MANJARREZ: RECEIVED A PHONE CALL FROM SHANE AT [facility] [phone] SHE RECEIVED ORDER FOR HOME O2 IT WILL BE DELIVERED TO BEDSIDE TODAY WITHIN 3-5 HOURS.
[2020-11-15 16:00] VITALS: BP 114/71
--- NOTE | 2020-11-15 18:00 | NUR ---
PT C/O PAIN TO LOWER EXTREMITIES PT WAS GIVEN MORPHINE PER MD ORDER. PT WAS ASSISTED TO BEDPAN AND PROVISION OF CARE PROVIDED. PT SEEN BY JANET CUBA WELL. ENCOURAGED TO STAY OFF HIS LEFT SIDE. ALL NEEDS MET AT THIS TIME.
--- NOTE | 2020-11-15 19:45 | NUR ---
PT ENDORSED TO RESIDENCE COUNSELOR RN FOR CONTINUITY OF CARE. PT IS STABLE ALL NEEDS ARE MET.
[2020-11-15] MEDS ORDERED: VANCOMYCIN HCL 1.25 GM in DEXTROSE 5% 250 ML IV SCH (21:00)
== END 2020-11-15 21:30 | disposition home or self-care (01) | DRG 720 ==
LOC: MED 07:49 → MMU 12:13 → MTU 23:45
PROVIDERS: ADMIT Internal Medicine; ATTEND Internal Medicine
DX: A41.9 Sepsis, unspecified organism (principal); I11.0 Hypertensive heart disease with heart failure; I21.4 Non-ST elevation (NSTEMI) myocardial infarction; L03.116 Cellulitis of left lower limb; I50.23 Acute on chronic systolic (congestive) heart failure; E66.01 Morbid (severe) obesity due to excess calories; L97.829 Non-pressure chronic ulcer of other part of left lower leg with unspecified severity; M62.82 Rhabdomyolysis; I42.8 Other cardiomyopathies; J44.0 Chronic obstructive pulmonary disease with (acute) lower respiratory infection; N17.9 Acute kidney failure, unspecified; Z86.718 Personal history of other venous thrombosis and embolism; J91.8 Pleural effusion in other conditions classified elsewhere; Z86.711 Personal history of pulmonary embolism; Z95.828 Presence of other vascular implants and grafts; Z74.01 Bed confinement status; E87.1 Hypo-osmolality and hyponatremia; R60.1 Generalized edema; Z68.42 Body mass index [BMI] 45.0-49.9, adult; R09.02 Hypoxemia; E80.6 Other disorders of bilirubin metabolism; Q53.10 Unspecified undescended testicle, unilateral; Z20.822 Contact with and (suspected) exposure to COVID-19; Z11.52 Encounter for screening for COVID-19
CPT/HCPCS: 36415; 36600; 71045; 71275; 73590; 76705; 80048; 80053; 80076; 80202; 82550; 82553; 82803; 83690; 83735; 83880; 84295; 84443; 84484; 85025; 85384; 85610; 85651; 85730; 86140; 87040; 87081; 93005; 93970; 96365; 96367; 96375; 99291; J1940; J2270; J2543; J3370; J3475; J3490; J7030; J7060; Q9967; U0003

== ENCOUNTER 2021-03-29 05:50 | Emergency (ER) | payer OTHER, SELFPAY ==
[~2021-03-29] VITALS: Ht 182.9 cm; Wt 90.7 kg
[~2021-03-29 05:50] MED LIST changes: +LOSA25TA43 PO
[2021-03-29 05:53] VITALS: BP 163/24
--- NOTE | 2021-03-29 05:53 | NUR ---
PATIENT BIBA FROM HOME, FULL ARREST. RECIEVED 4 EPI AND 1 [facility]. PATIENT ARRIVED TO BED 4 AT THIS TIME. ACLS PROTOCOL CONTINUED. SEE CODE BLUE SHEET FOR FURTHER DETAILS.
--- NOTE | 2021-03-29 05:53 | NUR ---
PT BIBA FULL ARREST. PT TAKEN TO BED 4. DR. BAE AND RT AT BEDSIDE
--- NOTE | 2021-03-29 06:00 | NUR ---
[place] [employer] AT BEDSIDE
--- NOTE | 2021-03-29 06:19 | NUR ---
PT PRONOUNCED BY DR. BAE AT THIS TIME
--- NOTE | 2021-03-29 06:23 | NUR ---
EMILE DALE, FATHER- [phone]. LAST SEEN NORMAL AT 0504, CPR INITIATED AT 0513. ALL INFORMATION GATHERED FROM [place] [employer] OFFICER Mel FELTON.
--- NOTE | 2021-03-29 06:25 | NUR ---
PT CALLED AND SPOKE WITH DR. BAE
--- NOTE | 2021-03-29 06:27 | NUR ---
MEDICAL ASSISTANT PRN CALLED. SPOKE WITH CHEPE. INFORMATION PROVIDED. AWAITING CALL BACK.
--- NOTE | 2021-03-29 06:31 | NUR ---
[facility] CALLED. SPOKE WITH DARRELL. INFORMATION PROVIDED. CASE #: [id number].
--- NOTE | 2021-03-29 07:15 | NUR ---
RECIEVED CALL FROM [facility]CHAN[facility], DEVIN CUENCA. PROVIDED INFORMATION, HOWEVER SHE WOULD LIKE MORE INFORMATION FROM THE REGARDING PATIENTS HX. SHE WILL BE AWAITING A CALL BACK. .
--- NOTE | 2021-03-29 07:32 | NUR ---
REPORT GIVEN TO RACHEL SHEEHAN FOR CONTINUITY OF CARE DURING CHANGE OF SHIFT.
--- NOTE | 2021-03-29 07:33 | NUR ---
Received report from RACHEL Majano and RACHEL [place]. Transfer of care at this time.
--- NOTE | 2021-03-29 07:50 | NUR ---
Dr. Coleman with pt father in triage room for pt updates.
--- NOTE | 2021-03-29 07:59 | NUR ---
Spoke with [facility] for updates on information father provided. They will be contacting if further questions arise.
--- NOTE | 2021-03-29 08:08 | NUR ---
Spoke with Coco from Sample Grinder's office for pt updates. Will be receiving a call with more information.
--- NOTE | 2021-03-29 08:18 | NUR ---
Spoke with Jocelin from [facility] for pt updates.
--- NOTE | 2021-03-29 09:13 | NUR ---
SPOKE WITH SRINIVASAN FROM [employer]PERATOR'S OFFICE, FAXED [facility] AND FIRE REPORT SHEETS TO [phone]. CASE # [id number], PER SRINIVASAN PLACE BODY IN [place] BUT UNABLE TO RELEASE TO MORTUARY. ORDER CONTROL CLERK BLOOD BANK WILL BE CONTACTED FOR FURTHER INSTRUCTIONS.
--- NOTE | 2021-03-29 09:17 | NUR ---
Faxed Fire run repor and [facility] run report to [place] [facility]
--- NOTE | 2021-03-29 09:48 | NUR ---
BODY MOVED TO ROOM 126 UNTIL DRY KILN FEEDER CONTACTS WASHTUB WORKER.
--- NOTE | 2021-03-29 14:32 | NUR ---
Call made to top and trim worker and voicemail left for Coco Gonzalez about ETA for tile picker.
--- NOTE | 2021-03-29 14:35 | NUR ---
[facility] has released the body and will not pursue anyhing further per superintendent house Kelsi
--- NOTE | 2021-03-29 16:24 | NUR ---
Follow up call made to [facility] office @ [phone], spoke with Radha and requested an ETA of a call back from a Oil Refiner. No ETA was provided, was told that a heating unit mechanic would be in touch with [facility] as soon as they could. Advised Radha that we do not have cold storage for body and are requesting an ETA as soon as possible. Provided [facility] office with the following call back numbers: [phone] and [phone].
--- NOTE | 2021-03-29 19:28 | NUR ---
DPTY BAILEY CALLED TO ADV THAT BODY MAY BE MOVED TO CONTRACTED MORTUARY OR FAMILY MORTUARY BUT PT CANNOT BE IMBALMED UNTIL CAUSE OF IS DETERMINED BY
--- NOTE | 2021-03-29 20:12 | NUR ---
PT MOVED TO [facility] OUTSIDE BY SECURITY AND PER GRETA.
--- NOTE | 2021-03-29 20:49 | NUR ---
CONTACTED PT FATHER ABOUT MORTUARY. WAS ADV THAT THEY ARE STILL LOOKING AROUND FOR ONE AND WILL CALL BACK WHEN THEY DECIDE
== END 2021-03-29 06:19 ==
LOC: MED 05:50
DX: I46.9 Cardiac arrest, cause unspecified (principal); I11.0 Hypertensive heart disease with heart failure; I50.9 Heart failure, unspecified; J44.9 Chronic obstructive pulmonary disease, unspecified; Z79.899 Other long term (current) drug therapy
CPT/HCPCS: 31500; 92950; 99285